=== PATIENT | male | born 1980 | race Caucasian/White ===

== ENCOUNTER → 2017-02-25 | Outpatient (CLI) | payer BC ==
[~2017-02-25] MED LIST: ADVIL200 MG PO; CLEOCIN150 MG PO; OMEPRAZOLE40 MG PO; PERCOCET 10-321 EACH PO; TYLENOL325 MG PO; VANCOCIN HCL125 MG PO
== END | disposition disaster alternative care site (69) ==
LOC: GLAB 02-23 12:02
DX: Z31.41 Encounter for fertility testing (principal)